=== PATIENT | female | born 1985 | race Caucasian/White ===

== ENCOUNTER 2020-02-12 10:45 | Emergency (ER) | payer SELFPAY ==
[~2020-02-12] VITALS: Ht 157.5 cm; Wt 9.5 kg
[2020-02-12 10:51] VITALS: BP 118/79
--- NOTE | 2020-02-12 10:52 | NUR ---
Pt given urine cup, ambulated to bed 03
--- NOTE | 2020-02-12 10:59 | NUR ---
Dr Mantilla at bedside examining pt
--- NOTE | 2020-02-12 11:04 | NUR ---
urine dipstick results given to Dr. Mantilla
--- NOTE | 2020-02-12 11:05 | NUR ---
35/F c/o rt flank pain radiating to groin, dysuria, urinary frequency x 3 days. states fever. febrile at triage, ERMD made aware by explosive operator bomb. most recent UTI in october 2019. pain 08/07 at this time. denies n/v AOX4 PMH: DM Rx: insulin R, glipizide, metformin
[2020-02-12] MEDS ORDERED: cefTRIAXone 2,000 MG VIAL ONE (11:07)
--- NOTE | 2020-02-12 11:17 | NUR ---
labs drawn bedside and handed to cash applications manager. Also informed cash applications manager to steel pickler urine sample.
[2020-02-12 11:27] LABS: BASOPHILS # (AUTO) 0.1 K/uL (0.00-0.22); EOSINOPHILS # (AUTO) 0.1 K/uL (0-0.4); EOSINOPHILS % (AUTO) 0.8 % (0.0-4.0); HEMATOCRIT 39.6 % (36-48); LYMPHOCYTES # (AUTO) 0.5 K/uL (2.5-16.5); LYMPHOCYTES % (AUTO) 7.9 % (20.5-51.1); MEAN CORPUSCULAR HEMOGLOBIN 29 pg (27-31); MEAN CORPUSCULAR HGB CONC 33 g/dL (33-37); MEAN CORPUSCULAR VOLUME 86.8 fL (80-94); MONOCYTES # (AUTO) 0.1 K/uL (0.8-1.0); NEUTROPHILS % (AUTO) 89.3 % (42.2-75.2); PLATELET COUNT (AUTO) 299 K/uL (140-450); RED BLOOD CELL COUNT(AUTO) 4.56 MIL/uL (4.20-5.40); RED CELL DISTRIBUTION WIDTH 13.8 % (11.6-13.7); WHITE BLOOD COUNT (AUTO) 6.7 K/uL (4.8-10.8)
[2020-02-12 11:28] LABS: APPEARANCE,URINE HAZY (CLEAR); BILIRUBIN,URINE NEGATIVE (NEGATIVE); BLOOD, URINE 1+ (NEGATIVE); COLOR,URINE AMBER (YELLOW); LEUKOCYTE ESTERASE ,URINE TRACE (NEGATIVE); NITRITE, URINE POSITIVE (NEGATIVE); PH,URINE 5.5 (5.0-9.0); UGLUCOSE 3+ (NEGATIVE)
[2020-02-12] MEDS: NACL 0.9% 1,000 ML IV ONE (11:28)
[2020-02-12] MEDS: ONDANSETRON 4 MG/2 ML VIAL IVP ONE (11:28)
[2020-02-12] MEDS: KETOROLAC 15 MG/ML VIAL IVP ONE (11:28)
[2020-02-12] MEDS: cefTRIAXone 2,000 MG in DEXTROSE 5% 100 ML IV ONE (11:29)
[2020-02-12 11:44] LABS: WBC,URINE 80-100 /HPF (0-5)
[2020-02-12 11:48] LABS: ALBUMIN 3.6 g/dL (3.4-5.0); ANION GAP 15.2 (8-16); CARBON DIOXIDE 26.3 mmol/L (21-32); CREATININE 0.8 mg/dL (0.6-1.3); POTASSIUM 3.5 mmol/L (3.5-5.1); TOTAL BILIRUBIN 1.3 mg/dL (0.0-1.0)
--- NOTE | 2020-02-12 12:00 | NUR ---
oral 102.3 at this time. Ordered Tylenol 1000 mg per standard protocol. Cooling measures in place. Pain states pain has decreased from 08/07 at triage to 05/07 at this time. Addendum: 02/12/20 at 1209 by SINCERE last antipyretic taken by patient [employer] SALES [employer]OC[employer]ATE was at 3am today
[2020-02-12] MEDS: ACETAMINOPHEN EXTRA STRENGTH 500 MG TAB PO ONE (12:10)
[2020-02-12 12:58] VITALS: BP 106/54
== END 2020-02-12 12:58 | disposition home or self-care (01) ==
LOC: MED 10:45
DX: N39.0 Urinary tract infection, site not specified (principal); E11.9 Type 2 diabetes mellitus without complications; Z88.0 Allergy status to penicillin
CPT/HCPCS: 36415; 80053; 81001; 81025; 83690; 85025; 87086; 96365; 96375; 99284; J0696; J1885; J2405; J7030; 87186